=== PATIENT | male | born 1965 | race Caucasian/White ===

== ENCOUNTER 2021-02-08 22:45 | Emergency (ER) | payer OTHER ==
[2021-02-08] MEDS ORDERED: ZITHROMAX 250M250 MG PO (23:06)
[2021-02-08] MEDS ORDERED: STROMECTOL3 MG PO (23:06)
[2021-02-08 23:23] LABS: BASO # 0.01 (0.02-0.10); HEMATOCRIT 43.5 % (42.0-52.0); HEMOGLOBIN 14.5 g/dL (13.5-18.0); LYMPH# 1.18 (1.50-4.00); MEAN CELL VOLUME 86 fl (78-100); MEAN CORPUSCULAR HEMOGLOBIN 29 pg (27-31); MEAN CORPUSCULAR HGB CONC 33 g/dL (33-37); MEAN PLATELET VOLUME 9.7 fl (7.4-10.4); MONO # 0.94 (0.20-0.80); NEU # 7.17 (1.40-6.50); PLATELET COUNT 375 K/mm3 (130-400); RED BLOOD COUNT 5.05 M/mm3 (4.20-5.60); RED CELL DISTRIBUTION WIDTH 13.2 % (11.5-14.5); WHITE BLOOD COUNT 9.4 K/mm3 (4.8-10.8)
[2021-02-08 23:32] LABS: ALBUMIN 3.4 g/dL (3.5-5.0); POTASSIUM 3.8 mmol/L (3.5-5.1); SODIUM 135 mmol/L (136-145)
[2021-02-08 23:33] LABS: CALCIUM 9.2 mg/dL (8.3-10.5)
[2021-02-08 23:34] LABS: GLUCOSE 152 mg/dL (75-110); TOTAL PROTEIN 7.2 g/dL (6.4-8.3)
[2021-02-08 23:35] LABS: CARBON DIOXIDE 25 mmol/L (22-29)
[2021-02-08 23:36] LABS: TOTAL BILIRUBIN 0.4 mg/dL (0.2-1.2)
[2021-02-08 23:40] LABS: AST-SGOT 24 U/L (5-34)
[2021-02-08 23:41] LABS: ALT/SGPT 29 U/L (0-55)
[2021-02-08 23:48] LABS: D-DIMER 0.83 mg/L FEU (0.15-0.50); TROPONIN-I < 0.03 ng/mL (<0.030)
[2021-02-09 00:29] LABS: ERYTHROCYTE SEDIMENTATION RATE 35 mm/hr (0-20)
[2021-02-09 00:58] LABS: URINE APPEARANCE CLEAR; URINE BILIRUBIN NEGATIVE (NEGATIVE); URINE BLOOD NEGATIVE (NEGATIVE); URINE COLOR YELLOW; URINE GLUCOSE NEGATIVE (NEGATIVE); URINE KETONE NEGATIVE (NEGATIVE); URINE LEUKOCYTE ESTERASE NEGATIVE (NEGATIVE); URINE NITRATE NEGATIVE (NEGATIVE); URINE PROTEIN(semi-quant) TRACE mg/dL (NEGATIVE); URINE UROBILINOGEN NORMAL (NORMAL); URINE WBC 0-1 /hpf (0-3)
[2021-02-09] MEDS ORDERED: DECADRON6 M1 PO (02:28)
[2021-02-09] MEDS ORDERED: LEVOFLOXACIN750 MG PO (02:28)
[2021-02-09 02:36] VITALS: BP 117/72
== END 2021-02-09 02:45 | disposition home or self-care (01) ==
LOC: ED 22:45
PROVIDERS: Physician Assistant
DX: U07.1 COVID-19 (principal); J12.82 Pneumonia due to coronavirus disease 2019; Z99.81 Dependence on supplemental oxygen
CPT/HCPCS: J0696; J1100; Q9967